=== PATIENT | female | born 1985 | race Caucasian/White ===

== ENCOUNTER 2017-09-27 15:46 | Outpatient (CLI) | payer OTHER | END 2017-09-27 15:50 | disposition home or self-care (01) | LOC: RAD 15:46 | DX: M79.1 Myalgia (principal) ==

== ENCOUNTER 2025-01-28 08:50 | Day surgery (SDC) | payer OTHER ==
[2025-01-26 14:06] VITALS: BP 118/73; BP 132/83
[~2025-01-28] VITALS: Ht 165.1 cm; Wt 68.0 kg
[~2025-01-28 08:50] MED LIST: METFORMIN HCL500 M3 PO; MOUNJARO2.5 MG/0.5
[2025-01-28] MEDS ORDERED: TRAMADOL HCL50 MG PO (10:53)
[2025-01-28] MEDS ORDERED: TYLENOL ARTHRI650 MG PO (10:53)
[2025-01-28] MEDS ORDERED: CEFAZOLIN SODIUM 1,000 MG VIAL ONE (10:58)
[2025-01-28] MEDS ORDERED: LIDOCAINE HCL 1% 20 ML VIAL IJ ONE (11:24)
[2025-01-28] MEDS ORDERED: BUPIVACAINE HCL/MPF 0.5% 30ML VIAL ONE (11:24)
[2025-01-28] MEDS ORDERED: LIDOCAINE HCL 1%/EPINEPHRINE 20ML VIAL IJ ONE (11:24)
[2025-01-28] MEDS ORDERED: MIRALAX17 GM PO (12:44)
== END 2025-01-28 14:20 | disposition home or self-care (01) ==
LOC: CIR.AMB 08:50
PROVIDERS: ATTEND Surgery
DX: D21.6 Benign neoplasm of connective and other soft tissue of trunk, unspecified (principal); D49.2 Neoplasm of unspecified behavior of bone, soft tissue, and skin